=== PATIENT | female | born 1965 | race Caucasian/White ===

== ENCOUNTER 2017-01-11 11:10 | Emergency (ER) | payer BC, MEDICAID ==
[~2017-01-11] VITALS: Ht 160 cm; Wt 52.2 kg
[~2017-01-11 11:10] MED LIST: ALPR-322 PO; CLON0.5T4 PO; LAMO25TA5 PO; LEVO75TA7 PO
--- NOTE | 2017-01-11 11:13 | NUR ---
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 GOWNED PT AWAITING MD ORDER.
[2017-01-11] MEDS ORDERED: FAMOTIDINE/PF INJ 20 MG/2 ML VIAL IV ONE (11:43)
[2017-01-11] MEDS ORDERED: diphenhydrAMINE HCL 50 MG/ML VIAL ONE (11:43)
[2017-01-11 11:44] LABS: APPEARANCE,URINE Clear (CLEAR); BILIRUBIN,URINE Negative (NEGATIVE); BLOOD, URINE Trace-lysed Ery/uL (NEGATIVE); COLOR,URINE Light yellow (YELLOW); KETONES,URINE Negative (NEGATIVE); LEUKOCYTE ESTERASE ,URINE Large (NEGATIVE); NITRITE, URINE Negative (NEGATIVE); PH,URINE 7.5 (5.0-8.0); PROTEIN,URINE Negative (NEGATIVE); UGLUCOSE Negative (NEGATIVE); UROBILINOGEN,URINE 0.2 EU/dL (0.2)
[2017-01-11 11:50] LABS: WBC,URINE 80-100 /HPF (0-3)
[2017-01-11 11:51] LABS: BACTERIA,URINE Few /HPF (None Seen); RBC,URINE 0-3 /HPF (0-2); SQUAMOUS EPITHELIAL CELL,UR Few /HPF (None Seen)
--- NOTE | 2017-01-11 11:53 | NUR ---
GIVEN PEPCID 20 MG VIA IVP VERBAL ORDER DR HARPER
[2017-01-11] MEDS ORDERED: methylPREDNISolone SOD SUCC 125 MG/2ML VIAL IV ONE (12:00)
[2017-01-11] MEDS ORDERED: diphenhydrAMINE HCL 50 MG/ML VIAL IV ONE (12:00)
[2017-01-11] MEDS ORDERED: FAMOTIDINE/PF INJ 40 MG in IV D5W 250 ML IV ONE (12:00)
--- NOTE | 2017-01-11 13:01 | NUR ---
IV removed. Catheter intact and site benign. Pressure and 4x4 applied to site. No bleeding noted.
--- NOTE | 2017-01-11 13:02 | NUR ---
Patient discharged to home in stable condition. Written and verbal after care instructions given. Patient verbalizes understanding of instruction.
[2017-01-11 13:03] VITALS: BP 130/81
== END 2017-01-11 13:04 | disposition home or self-care (01) ==
LOC: ER 11:12
DX: T78.40XA Allergy, unspecified, initial encounter (principal); N39.0 Urinary tract infection, site not specified; E06.3 Autoimmune thyroiditis; M79.7 Fibromyalgia; Z88.5 Allergy status to narcotic agent; Y92.89 Other specified places as the place of occurrence of the external cause
CPT/HCPCS: 81001; 87086; 96374; 96375; 99284; A4606; J1200; J3490 ×2; J7060; Z7610; 81000-TC; 87186-TC